=== PATIENT | female | born 1970 | race Caucasian/White ===

== ENCOUNTER 2021-05-01 13:32 | Emergency (ER) | payer BC ==
[~2021-05-01] VITALS: Ht 170.2 cm; Wt 72.7 kg
[2021-05-01] MEDS ORDERED: ketorolac tromethamine 15mg/ml inj. IM ONE (17:15)
[2021-05-01 17:17] LABS: BASOPHILS # (AUTO) 0.1 X10'3 (0-0.2); BASOPHILS % (AUTO) 0.7 % (0-1); EOSINOPHILS # (AUTO) 0.1 X10'3 (0-0.9); EOSINOPHILS % (AUTO) 1.7 % (0-6); HEMATOCRIT 39.2 % (35.0-45.0); HEMOGLOBIN 13.3 g/dl (12.0-16.0); LYMPHOCYTES # (AUTO) 1.1 X10'3 (1.1-4.8); LYMPHOCYTES % (AUTO) 15.6 % (21-51); MEAN CORPUSCULAR HEMOGLOBIN 32.3 PG (27.0-31.0); MEAN PLATELET VOLUME 7.8 FL (7.4-10.4); MONOCYTES # (AUTO) 0.5 X10'3 (0-0.9); NEUTROPHILS # (AUTO) 5.4 X10'3 (1.8-7.7); PLATELET COUNT 291 X10'3 (140-440); RED BLOOD COUNT 4.12 X10'6 (4.20-5.60); RED CELL DISTRIBUTION WIDTH 12.4 % (11.5-14.5); WHITE BLOOD COUNT 7.2 X10'3 (4.5-11.0)
--- NOTE | 2021-05-01 17:28 | NUR ---
lita reports allergy to ibuprofen,toradol held.Ramo mariscal.
[2021-05-01 17:33] LABS: ALANINE AMINOTRANSFERASE 31 U/L (12-78); ALBUMIN 4.1 G/DL (3.4-5.0); ALBUMIN/GLOBULIN RATIO 1.4 (1.1-1.5); ALKALINE PHOSPHATASE 55 IU/L (46-116); ANION GAP 10 (8-16); ASPARTATE AMINO TRANSFERASE 29 U/L (10-37); BILIRUBIN,TOTAL 0.3 MG/DL (0.1-1.0); BLOOD UREA NITROGEN 8 MG/DL (7-18); CALCIUM 8.5 MG/DL (8.5-10.1); CHLORIDE 105 MMOL/L (99-107); CREATININE 0.73 MG/DL (0.40-0.90); GLUCOSE 85 MG/DL (70-104); POTASSIUM 3.7 MMOL/L (3.5-5.1); SODIUM 142 MMOL/L (135-145); TOTAL PROTEIN 7.1 G/DL (6.4-8.2); eGFR 84 ML/MIN
[2021-05-01] MEDS ORDERED: acetaminophen 325mg tablet PO STA (17:33)
[2021-05-01 17:44] VITALS: BP 122/75
== END 2021-05-01 17:45 | disposition home or self-care (01) ==
LOC: ER 13:34
DX: R51.9 Headache, unspecified (principal); I48.91 Unspecified atrial fibrillation; Z88.6 Allergy status to analgesic agent; Z88.8 Allergy status to other drugs, medicaments and biological substances
CPT/HCPCS: 36415; 70450; 80053; 85025; 93005; 99285

== ENCOUNTER 2021-05-21 16:34 | Emergency (ER) | payer BC ==
[~2021-05-21] VITALS: Ht 170.2 cm; Wt 71.2 kg
[2021-05-21] MEDS ORDERED: LORazepam 2 mg/ml vial IM ONE (20:20)
[2021-05-21 21:07] VITALS: BP 121/76
[2021-05-21 21:08] LABS: URINE AMPHETAMINE SCREEN NEGATIVE (Neg); URINE BARBITUATE SCREEN NEGATIVE (Neg); URINE BENZODIAZEPINES SCREEN NEGATIVE (Neg); URINE CANNABINOID SCREEN NEGATIVE (Neg); URINE COCAINE SCREEN NEGATIVE (Neg); URINE METHADONE SCREEN NEGATIVE (Neg); URINE OPIATE SCREEN NEGATIVE (Neg); URINE PHENCYCLIDINE SCREEN NEGATIVE (Neg)
[2021-05-21 21:15] LABS: BASOPHILS % (AUTO) 0.5 % (0-1); EOSINOPHILS # (AUTO) 0.1 X10'3 (0-0.9); EOSINOPHILS % (AUTO) 2.2 % (0-6); HEMATOCRIT 35.8 % (35.0-45.0); HEMOGLOBIN 12.3 g/dl (12.0-16.0); LYMPHOCYTES # (AUTO) 1.3 X10'3 (1.1-4.8); LYMPHOCYTES % (AUTO) 23.6 % (21-51); MEAN CORPUSCULAR HEMOGLOBIN 32.1 PG (27.0-31.0); MEAN CORPUSCULAR HGB CONC 34.5 g/dL (33.0-36.5); MEAN CORPUSCULAR VOLUME 93.2 FL (78-98); MONOCYTES # (AUTO) 0.6 X10'3 (0-0.9); NEUTROPHILS # (AUTO) 3.5 X10'3 (1.8-7.7); NEUTROPHILS % (AUTO) 62.7 % (42-75); PLATELET COUNT 269 X10'3 (140-440); RED BLOOD COUNT 3.84 X10'6 (4.20-5.60); RED CELL DISTRIBUTION WIDTH 12.3 % (11.5-14.5); WHITE BLOOD COUNT 5.5 X10'3 (4.5-11.0)
[2021-05-21 21:17] LABS: CLARITY,URINE CLEAR (Clear); COLOR,URINE YELLOW (Yellow); GLUCOSE, URINE NEGATIVE (Neg); KETONES,URINE 15 mg/dl (Neg); LEUKOCYTE ESTERASE ,URINE NEGATIVE (Neg); NITRITES, URINE NEGATIVE (Neg); OCCULT BLOOD,URINE NEGATIVE (Neg); PH,URINE 6.5 (4.8-8.0); PROTEIN,URINE NEGATIVE (Neg); UROBILINOGEN,URINE 0.2 E.U/dL (0.2-1.0)
[2021-05-21 21:18] LABS: UA COLLECTION TYPE CLN CATCH MIDSTREAM
[2021-05-21 21:29] LABS: ALANINE AMINOTRANSFERASE 39 U/L (12-78); ALBUMIN/GLOBULIN RATIO 1.3 (1.1-1.5); ALKALINE PHOSPHATASE 65 IU/L (46-116); ANION GAP 9 (8-16); ASPARTATE AMINO TRANSFERASE 28 U/L (10-37); BILIRUBIN,TOTAL 0.2 MG/DL (0.1-1.0); BLOOD UREA NITROGEN 6 MG/DL (7-18); BUN/CREATININE RATIO 8.5 (6.6-38.0); CALCIUM 8.6 MG/DL (8.5-10.1); CHLORIDE 107 MMOL/L (99-107); CREATININE 0.71 MG/DL (0.40-0.90); GLUCOSE 137 MG/DL (70-104); LIPASE 68 U/L (73-393); MAGNESIUM 2.1 MG/DL (1.5-2.4); POTASSIUM 3.4 MMOL/L (3.5-5.1); SODIUM 143 MMOL/L (135-145); eGFR 86 ML/MIN
[2021-05-21] MEDS ORDERED: potassium Cl 20 mEq SR tablet PO ONE (21:45)
== END 2021-05-21 22:18 | disposition home or self-care (01) ==
LOC: ER 16:35
DX: R20.0 Anesthesia of skin (principal); I48.91 Unspecified atrial fibrillation; Z88.6 Allergy status to analgesic agent; Z88.8 Allergy status to other drugs, medicaments and biological substances
CPT/HCPCS: 36415; 80053; 80305; 81003; 83690; 83735; 84484; 85025; 93005; 96372; 99284; J2060

== ENCOUNTER 2022-03-04 13:06 | Inpatient (IN) | payer BC ==
[~2022-03-04] VITALS: Ht 170.2 cm; Wt 73.9 kg
[2022-03-04 13:52] VITALS: BP 102/73
[2022-03-04] MEDS ORDERED: atropine 1 MG/1 ML vial IV PRN (14:30)
[2022-03-04] MEDS ORDERED: APIX5TAB3 PO (14:40)
[2022-03-04] MEDS ORDERED: LOP25T PO (14:40)
[2022-03-04 15:00] VITALS: BP 106/63
[2022-03-04 17:00] VITALS: BP 106/63
--- NOTE | 2022-03-04 17:21 | NUR ---
Multiple attempts to reach MD Villanueva. fountain supervisor spoke to MD, see new orders. MD to come bedside in afternoon, per Ryan GLOVER. Addendum: 03/04/22 at 1725 by Rubin Barnes RN Awaiting admission orders.
[2022-03-04 18:00] VITALS: BP 102/63
[2022-03-04 22:00] VITALS: BP 95/61
[2022-03-04] MEDS: apixaban 5mg tablet PO SCH (22:08)
[2022-03-05 02:00] VITALS: BP 105/62
[2022-03-05 06:00] VITALS: BP 94/53
--- NOTE | 2022-03-05 06:15 | NUR ---
Patient in room PCU 3008. I have received report from Jaylin Gonzalez and had the opportunity to ask questions and assume patient care.
[2022-03-05] MEDS: apixaban 5mg tablet PO SCH (09:09)
[2022-03-05 11:00] VITALS: BP 100/55
== END 2022-03-05 13:47 | disposition home or self-care (01) | DRG 310 ==
LOC: PCU 3S 13:06
PROVIDERS: ADMIT Internal Medicine Interventional Cardiology; ATTEND Internal Medicine Interventional Cardiology
DX: I48.91 Unspecified atrial fibrillation (principal); I47.1 Supraventricular tachycardia; Z79.899 Other long term (current) drug therapy; Z88.8 Allergy status to other drugs, medicaments and biological substances
CPT/HCPCS: 87081; G0378